=== PATIENT | female | born 1945 | race African-American/Black ===

== ENCOUNTER 2020-10-23 14:38 | Inpatient (IN) | payer OTHER ==
[~2020-10-23] VITALS: Ht 152.4 cm; Wt 76.8 kg
[~2020-10-23 14:38] MED LIST: ADULT LOW DOSE81 MG PO; AMLODIPINE BESY10 MG PO; CALCIUM 600 +1 EAC5 PO; FUROSEMIDE 20 M20 MG PO; GLYBURIDE 5 MG T5 M1 PO; KEPPRA1000 MG PO; LEXAPRO 10 MG T10 MG PO; LISINOPRIL40 MG PO; LORAZEPAM 0.50.5 MG PO; PRILOSEC 20 MG20 MG PO
[2020-10-23 14:40] VITALS: BP 147/59
[2020-10-23 16:42] LABS: ABSOLUTE NEUTROPHILS 4.6 thou/uL (1.4-8.2); BASOPHILS 0.8 % (0.0-2.0); EOSINOPHILS 2.4 % (0.0-3.0); HEMATOCRIT 34.9 % (37.0-47.0); HEMOGLOBIN 11.5 gm/dL (12.0-15.0); LYMPHOCYTES 30.4 % (24.0-44.0); MCH 29.7 pg (26.0-34.0); MCV 89.9 fL (80.0-100.0); MONOCYTES 7.6 % (1.0-8.0); PLATELET COUNT 177 thou/uL (150-400); POLYS 58.8 % (36.0-66.0); RBC 3.88 mil/uL (4.20-5.00); RDW 13.6 % (10.5-14.5); WBC 7.8 thou/uL (4.0-11.0)
[2020-10-23 16:50] LABS: ANION GAP 8 mmol/L (7-16); BUN 12 mg/dL (7-18); CALCIUM 9.2 mg/dL (8.5-10.1); CHLORIDE 109 mmol/L (98-107); CO2 26 mmol/L (21-32); CREATININE 0.9 mg/dL (0.6-1.0); GLUCOSE 104 mg/dL (74-106); POTASSIUM 3.4 mmol/L (3.5-5.1); SODIUM 143 mmol/L (136-145)
[2020-10-23 16:58] LABS: TROPONIN-I <0.06 ng/mL (<0.06)
--- NOTE | 2020-10-23 17:33 | EKG ---
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 <ELECTRONICALLY SIGNED> By: Fredy Sorto MD, [facility] 10/23/20 1733 1627 162 Fredy Sorto MD, [facility] /EPI
[2020-10-23 23:20] VITALS: BP 121/63
[2020-10-23 23:52] VITALS: BP 138/78
[2020-10-24 00:20] VITALS: BP 132/71
[2020-10-24 04:20] VITALS: BP 122/69
[2020-10-24 06:12] LABS: CALCIUM 8.6 mg/dL (8.5-10.1); CREATININE 0.8 mg/dL (0.6-1.0)
--- NOTE | 2020-10-24 07:56 | NUR ---
PT ARRIVED FROM ER VIA CART. PLACED IN OO 362. ADMISSION ASSESSMENTS COMPLETED. SEE CHARTING. ON ROOM AIR. LUNGS DIMINISHED THROUGHOUT. OCCASIONAL COUGH WITH OCCASIONAL GREEN SPUTUM REPORTED BUT NOT WITNESSED. REPORTEDLY IN AFIB WHILE IN ER. SINUS RHYTM NOTED ON TELE, SEE TELE STRIPS ON CHART. DENIED ANY LIGHTHEADED/DIZZINESS WITH MOVEMENT. CONTINUE TO MONITOR.
[2020-10-24 08:12] VITALS: BP 121/70
[2020-10-24 11:02] LABS: DIRECT BILIRUBIN 0.2 mg/dL (<0.1-0.2); TOTAL BILIRUBIN 0.6 mg/dL (0.2-1.0); TOTAL PROTEIN 7.7 g/dL (6.4-8.2)
--- NOTE | 2020-10-24 12:13 | 2DMMODE ---
[facility] [place] [address] 2 D/M-MODE ECHOCARDIOGRAM Name: THAO PATEL Room #: 362-P ADM IN M.R.#: [id number] Admission: 10/23/20 Attend Phys: Boby Bravo MD Discharge: Date of : 43 Report #: [id number] THIS REPORT FOR: cc: Luis Morris MD, Keninde A. MD Santiago, Patrick MD [facility] ~ APPROVED REPORT Study performed: 10/24/2020 10:46:24 EXAM: Comprehensive 2D, Doppler, and color-flow Echocardiogram Patient Location: Bedside Room #: 362 BSA: 1.70 HR: 92 bpm BP: 121/70 mmHg Rhythm: NSR Other Information Study Quality: Good Indications Atrial Fibrillation 2D Dimensions RVDd: 35.24 mm IVSd: 8.57 (7-11mm) LVOT Diam: 19.44 (18-24mm) LVDd: 47.48 mm PWd: 8.91 (7-11mm) Ascending Ao: 32.96 (22-36mm) LVDs: 29.07 (25-40mm) Aortic Root: 27.35 mm IVC: 11.00 mm Volumes Left Atrial Volume (Systole) Single Plane 4CH: 67.69 mL Single Plane 2CH: 80.09 mL LA ESV Index: 48.00 mL/m2 Aortic Valve AoV Peak Anshul.: 1.21 m/s AO Peak Gr.: 5.87 mmHg LVOT Max P.83 mmHg LVOT Max V: 1.10 m/s ALEA Vmax: 2.69 cm2 [facility] [address] [place] [address] 2 D/M-MODE ECHOCARDIOGRAM Name: THAO PATEL Room #: 362-P ADM IN .R.#: [id number] Admission: 10/23/20 Attend Phys: Boby Bravo MD Discharge: Date of : 43 Report #: [id number] Pulmonary Valve PV Peak Anshul.: 0.84 m/s PV Peak Gr.: 2.82 mmHg Tricuspid Valve TR Peak Anshul.: 3.66 m/s TR Peak Gr.: 53.60 mmHg PA Pressure: 59.00 mmHg Left Ventricle The left ventricle is normal size. There is normal LV segmental wall motion. There is normal left ventricular wall thickness. The left ventricular systolic function is normal. The left ventricular ejection fraction is within the normal range. LVEF is 55-60%. The left ventricular diastolic function is abnormal. Right Ventricle The right ventricle is normal size. The right ventricular systolic function is normal. Atria Left atrium is dilated. Right atrium is dilated. Aortic Valve The aortic valve is normal in structure. The Aortic valve is sclerotic. No aortic regurgitation is present. There is no aortic valvular stenosis. Mitral Valve The mitral valve is normal in structure. Mild mitral regurgitation. No evidence of mitral valve stenosis. Tricuspid Valve The tricuspid valve is normal in structure. There is mild tricuspid regurgitation. Estimated PAP 59 mmHg. There is moderate pulmonary hypertension. Pulmonic Valve The pulmonary valve is normal in structure. There is no pulmonic valvular regurgitation. Great Vessels The aortic root is normal in size. IVC is normal in size and collapses >50% with inspiration. Pericardium There is no pericardial effusion. [facility] [address] [place] [address] 2 D/M-MODE ECHOCARDIOGRAM Name: [facility] Room #: 362-P ADM IN M.R.#: [id number] Admission: 10/23/20 Attend Phys: Boby Bravo MD Discharge: Date of : 43 Report #: [id number] <Conclusion> Normal left ventricular size/wall thickness Ejection fraction 55% Normal right ventricular size/function Mild biatrial enlargement Color-flow Doppler study was performed of the aortic/mitral/tricuspid/pulmonary valve Normal aortic valve structure and function Mild mitral valve insufficiency Mild tricuspid valve insufficiency Pulmonary systolic pressure estimated 59 mmHg Normal aortic root size No pericardial effusion <ELECTRONICALLY SIGNED> By: Bernabe Chavez MD, [facility] 10/24/20 121 11 1212 Bernabe Chavez MD, FACC /INF
--- NOTE | 2020-10-24 13:52 | NUR ---
Chart reveiwed and case discussed with the care team. Pt admited with afib and r/o covid. Covid pcr negative and pt has had both vaccines. Studio Designer spoke with the pt via phone. She lives with her spouse and was indep prior to admission. She has no dme at home and drives. She goes to Dr. Luis oMrris at [facility]. She denies any dc needs or concerns. Cm role introduced should dc planning needs arise.
[2020-10-24 15:42] VITALS: BP 148/82
[2020-10-24 16:41] LABS: INR 1.1; PROTIME 11.9 Seconds (9.3-11.4)
--- NOTE | 2020-10-24 18:12 | NUR ---
ASSUMED PATIENT CARE AT 0700. A/O X4. ANXIOUS. NSR ON MONITOR. UP AD KWAKU. PROGRESSING TOWARDS POC GOALS.
[2020-10-24 19:27] VITALS: BP 126/67
--- NOTE | 2020-10-24 23:08 | NUR ---
PT RESTING IN BED, VISITING WITH FAMILY. IV ANTIBIOTICS PROVIDED. PT ATE DINNER LATE AND HAD HS SNACK. STEADY GAIT TO RESTROOM.
[2020-10-25 03:38] VITALS: BP 127/77
[2020-10-25 05:11] LABS: ABSOLUTE NEUTROPHILS 8.5 thou/uL (1.4-8.2); BASOPHILS 0.2 % (0.0-2.0); EOSINOPHILS 0.2 % (0.0-3.0); HEMATOCRIT 30.9 % (37.0-47.0); HEMOGLOBIN 10.2 gm/dL (12.0-15.0); LYMPHOCYTES 17.4 % (24.0-44.0); MCH 29.8 pg (26.0-34.0); MCHC 32.9 g/dL (28.0-37.0); MCV 90.4 fL (80.0-100.0); MONOCYTES 7.7 % (1.0-8.0); PLATELET COUNT 168 thou/uL (150-400); POLYS 74.5 % (36.0-66.0); RBC 3.42 mil/uL (4.20-5.00); RDW 13.5 % (10.5-14.5); WBC 11.4 thou/uL (4.0-11.0)
[2020-10-25 05:38] LABS: INR 1.14; PROTIME 12.4 Seconds (9.3-11.4)
[2020-10-25 07:51] VITALS: BP 130/78
--- NOTE | 2020-10-25 11:23 | NUR ---
Per phys tenative plan for discharge to home in am. Phys reports plan for home with HH care. Sp with patient. No preference for home health care. Verified address, phone numbers and PCP. DC community development planner to fax referral to HH agency.
--- NOTE | 2020-10-25 12:11 | NUR ---
FAXED REFERRAL TO [facility] HH SPOKE WITH NOBLE IN INTAKE SHE RECEIVED REFERRAL AND CAN ACCEPT AT [place].
[2020-10-25 12:12] VITALS: BP 130/78
--- NOTE | 2020-10-25 17:48 | NUR ---
ASSUMED PATIENT CARE AT 0700. A/O X4. AFIB ON MONITOR. UP AD LIP. NO CHEST PAIN. SOLWLY TOWARDS POC GOALS.
[2020-10-25 19:03] VITALS: BP 109/61
[2020-10-26 04:45] VITALS: BP 131/76
[2020-10-26 05:04] LABS: HEMATOCRIT 32.2 % (37.0-47.0); HEMOGLOBIN 10.6 gm/dL (12.0-15.0); MCH 29.9 pg (26.0-34.0); MCHC 32.9 g/dL (28.0-37.0); MCV 90.8 fL (80.0-100.0); RBC 3.55 mil/uL (4.20-5.00); WBC 8.1 thou/uL (4.0-11.0)
[2020-10-26 05:15] LABS: CALCIUM 8.6 mg/dL (8.5-10.1); POTASSIUM 3.7 mmol/L (3.5-5.1)
--- NOTE | 2020-10-26 07:47 | NUR ---
PROGRESS A/O X4 UP AD KWAKU DENIES PAIN. TELE READING CONROLLED AFIB/SR AT TIMES . PT EXPECTS TO DC HOME TODAY.
[2020-10-26 08:04] VITALS: BP 134/71
[2020-10-26] MEDS ORDERED: ELIQUIS5 MG PO (09:06)
[2020-10-26] MEDS ORDERED: ATENOLOL 50MG T50 MG PO (09:06)
[2020-10-26 09:11] VITALS: BP 134/71
[2020-10-26] MEDS ORDERED: CETIRIZINE HCL5 MG PO (09:41)
--- NOTE | 2020-10-26 14:29 | NUR ---
PROGRESSING TOWARDS POC GOALS. DC TO HOME NOW.
--- NOTE | 2020-10-26 15:10 | NUR ---
DISCHARGE NOTE: SW reviewed chart and spoke with nursing and attending physician. Pt is medically stable for discharge home today with services. conference planner to fax d/c ppwk to [facility] . Pt's family to provide transportation home. No additional SW needs identified at this time, but is available to assist should needs arise.
--- NOTE | 2020-10-26 15:51 | NUR ---
PT DISCHARGING HOME TODAY WITH [facility] FAXED DC ORDERS/SUMMARY SPOKE WITH NOBLE IN INTAKE SHE RECEIVED ORDERS AND WILL ARRANGE VISITS WITH PT.
== END 2020-10-26 14:48 | disposition home health service (06) | DRG 193 ==
LOC: ER 14:38 → 3W 20:02 → EROBS 20:02 → 3W 23:53
PROVIDERS: Nurse Practitioner; Nurse Practitioner Family; ADMIT Hospitalist; ATTEND Hospitalist
DX: J18.9 Pneumonia, unspecified organism (principal); R65.11 Systemic inflammatory response syndrome (SIRS) of non-infectious origin with acute organ dysfunction; E87.0 Hyperosmolality and hypernatremia; I48.91 Unspecified atrial fibrillation; Z20.822 Contact with and (suspected) exposure to COVID-19; I10 Essential (primary) hypertension; E11.9 Type 2 diabetes mellitus without complications; K21.9 Gastro-esophageal reflux disease without esophagitis; R53.81 Other malaise; M81.0 Age-related osteoporosis without current pathological fracture; K74.60 Unspecified cirrhosis of liver; Z60.2 Problems related to living alone; G40.909 Epilepsy, unspecified, not intractable, without status epilepticus; B19.20 Unspecified viral hepatitis C without hepatic coma; F32.9 Major depressive disorder, single episode, unspecified; F41.9 Anxiety disorder, unspecified; Z86.73 Personal history of transient ischemic attack (TIA), and cerebral infarction without residual deficits; Z90.49 Acquired absence of other specified parts of digestive tract; Z88.6 Allergy status to analgesic agent; Z88.0 Allergy status to penicillin; Z88.8 Allergy status to other drugs, medicaments and biological substances; Z79.899 Other long term (current) drug therapy
CPT/HCPCS: 10879

== ENCOUNTER → 2020-11-09 | Outpatient (CLI) | payer OTHER ==
[~2020-11-09] MED LIST changes: +ATENOLOL 50MG T50 MG PO; +CETIRIZINE HCL5 MG PO; +ELIQUIS5 MG PO
== END ==
LOC: SJCVCIMAG 07:03
PROVIDERS: ATTEND Internal Medicine Cardiovascular Disease
DX: I48.91 Unspecified atrial fibrillation (principal); I49.3 Ventricular premature depolarization; R10.9 Unspecified abdominal pain; R07.89 Other chest pain; I10 Essential (primary) hypertension; K22.6 Gastro-esophageal laceration-hemorrhage syndrome; R06.09 Other forms of dyspnea; E11.9 Type 2 diabetes mellitus without complications; K21.9 Gastro-esophageal reflux disease without esophagitis; R05 Cough; Z88.0 Allergy status to penicillin; Z88.5 Allergy status to narcotic agent; Z88.8 Allergy status to other drugs, medicaments and biological substances; Z98.890 Other specified postprocedural states; Z79.899 Other long term (current) drug therapy; Z86.73 Personal history of transient ischemic attack (TIA), and cerebral infarction without residual deficits

== ENCOUNTER → 2020-11-14 | Outpatient (CLI) | payer OTHER | LOC: SJCVC 13:47 | PROVIDERS: ATTEND Internal Medicine Cardiovascular Disease | DX: R94.31 Abnormal electrocardiogram [ECG] [EKG] (principal); I48.91 Unspecified atrial fibrillation; I10 Essential (primary) hypertension; E11.9 Type 2 diabetes mellitus without complications; G40.909 Epilepsy, unspecified, not intractable, without status epilepticus; K21.9 Gastro-esophageal reflux disease without esophagitis; F41.9 Anxiety disorder, unspecified; F32.9 Major depressive disorder, single episode, unspecified; Z79.899 Other long term (current) drug therapy; Z86.73 Personal history of transient ischemic attack (TIA), and cerebral infarction without residual deficits; Z88.1 Allergy status to other antibiotic agents; Z88.5 Allergy status to narcotic agent; Z88.0 Allergy status to penicillin; Z88.8 Allergy status to other drugs, medicaments and biological substances ==

== ENCOUNTER → 2020-12-04 | Outpatient (CLI) | payer OTHER | LOC: SJCVC 09:33 | PROVIDERS: ATTEND Internal Medicine Cardiovascular Disease | DX: R94.31 Abnormal electrocardiogram [ECG] [EKG] (principal); I48.0 Paroxysmal atrial fibrillation; E11.9 Type 2 diabetes mellitus without complications; I10 Essential (primary) hypertension; K21.9 Gastro-esophageal reflux disease without esophagitis; G40.909 Epilepsy, unspecified, not intractable, without status epilepticus; F41.9 Anxiety disorder, unspecified; F32.9 Major depressive disorder, single episode, unspecified; Z88.1 Allergy status to other antibiotic agents; Z88.5 Allergy status to narcotic agent; Z88.0 Allergy status to penicillin; Z88.8 Allergy status to other drugs, medicaments and biological substances; Z79.899 Other long term (current) drug therapy; Z86.73 Personal history of transient ischemic attack (TIA), and cerebral infarction without residual deficits ==

== ENCOUNTER → 2021-03-12 | Outpatient (CLI) | payer OTHER | LOC: SJCVC 09:41 | PROVIDERS: ATTEND Internal Medicine Cardiovascular Disease | DX: R94.31 Abnormal electrocardiogram [ECG] [EKG] (principal); I48.0 Paroxysmal atrial fibrillation; R07.9 Chest pain, unspecified; K22.6 Gastro-esophageal laceration-hemorrhage syndrome; I10 Essential (primary) hypertension; E11.9 Type 2 diabetes mellitus without complications; K21.9 Gastro-esophageal reflux disease without esophagitis; F32.9 Major depressive disorder, single episode, unspecified; F41.9 Anxiety disorder, unspecified; Z86.73 Personal history of transient ischemic attack (TIA), and cerebral infarction without residual deficits; Z88.1 Allergy status to other antibiotic agents; Z88.5 Allergy status to narcotic agent; Z88.8 Allergy status to other drugs, medicaments and biological substances; Z91.013 Allergy to seafood; Z79.899 Other long term (current) drug therapy ==